=== PATIENT | male | born 1990 | race Caucasian/White ===

== ENCOUNTER 2017-11-10 15:09 | Emergency (ER) | payer BC, OTHER ==
[~2017-11-10] VITALS: Ht 152.4 cm; Wt 51.3 kg
[2017-11-10] MEDS ORDERED: MULTIVITAMIN1 EAC2 PO (18:34)
[2017-11-10] MEDS ORDERED: LEVOTHYROXINE125 MCG PO (18:35)
[2017-11-10] MEDS ORDERED: OLANZAPINE15 MG PO (18:36)
[2017-11-10] MEDS ORDERED: LEVETIRACETAM750 MG PO (18:37)
[2017-11-10] MEDS ORDERED: DIVALPROEX SOD500 M1 PO (18:38)
[2017-11-10] MEDS ORDERED: VIMPAT100 MG PO (18:38)
[2017-11-10] MEDS ORDERED: FUROSEMIDE20 MG PO (18:39)
[2017-11-10 20:47] VITALS: BP 121/94
== END 2017-11-10 20:57 | disposition home or self-care (01) ==
LOC: EME 15:09
DX: S00.83XA Contusion of other part of head, initial encounter (principal); F84.0 Autistic disorder; W18.30XA Fall on same level, unspecified, initial encounter; Y92.210 Daycare center as the place of occurrence of the external cause; F41.9 Anxiety disorder, unspecified; E03.9 Hypothyroidism, unspecified
CPT/HCPCS: 70450; 99281; 99284; J1630; J2060